=== PATIENT | female | born 1995 | race Caucasian/White ===

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

== ENCOUNTER 2020-11-26 22:56 | Inpatient (IN) ==
[2020-11-26] MEDS ORDERED: OXYTOCIN 30 UNITS/500 ML BAG IV PRN (23:13)
[2020-11-26] MEDS ORDERED: LACTATED RINGER'S 1,000 ML IV PRN (23:13)
[2020-11-26 23:47] LABS: Hematocrit (blood only) 35.1 % (37-47); Hemoglobin 11.4 g/dL (12.0-16.0); Mean Corpuscular Hemoglobin 23.5 pg (25-34); Mean Corpuscular Hgb Conc 32.5 g/dL (32-36); Mean Corpuscular Volume 72.2 fL (80-100); Mean Platelet Volume 11.2 fL (7.4-10.4); Platelet Count 236 K/uL (130-400); RDW Coefficient of Variation 15.3 % (11.5-14.5); RDW Standard Deviation 40.7 fL (36.4-46.3); Red Blood Count 4.86 M/uL (4.2-5.4); White Blood Count 22.29 K/uL (4.8-10.8)
[2020-11-27] MEDS ORDERED: LIDOCAINE 1% LOCAL 20 ML VIAL ONE (01:15)
[2020-11-27] MEDS ORDERED: BENZOCAINE 20% AER SPR 82.5 GM CAN EXT PRN (02:10)
[2020-11-27] MEDS ORDERED: HYDROCORTISONE ACETATE 25 MG SUPP PR PRN (02:10)
[2020-11-27] MEDS ORDERED: IBUPROFEN 600 MG TAB PO PRN (02:10)
[2020-11-27] MEDS ORDERED: ACETAMINOPHEN 325 MG TAB PO PRN (02:10)
[2020-11-27] MEDS ORDERED: DIPHTHERIA/TETANUS/PERTUSSIS 0.5 ML SYR/VIAL IM ONE (02:10)
[2020-11-27] MEDS ORDERED: SUPERCREAM 0.870% 15 GM JAR EXT PRN (02:10)
[2020-11-27] MEDS ORDERED: oxyCODONE/ACETAMINOPHEN 5mg/325mg TAB PO PRN (02:10)
[2020-11-27] MEDS ORDERED: OXYTOCIN 30 UNITS/500 ML BAG IV PRN (02:10)
[2020-11-27] MEDS ORDERED: miSOPROStoL 200 MCG TAB PR ONE (02:10)
--- NOTE | 2020-11-27 08:01 | Delivery Summary ---
The patient delivered a live in left occiput anterior presentation. There was no nuchal cord. Infant was delivered and placed on mother's abdomen. Delayed cord clamp was performed. Cord blood was obtained. Placenta was spontaneously delivered. Infant was handed over to the pediatric team. Details of weight and Apgars are in the pediatric record. Inspection of the perineum shows a second-degree midline laceration, which was repaired with 2-0 and 3-0 Vicryl in layers. There was good hemostasis. Rectal exam post-repair showed good sphincter tone. No sutures are palpated in the rectum. Estimated blood loss is 450 mL. All instruments were removed from the vagina including sponges, needles, and retractors. Baby and mother are doing well in recovery. Job ID: [id number] [facility]
[2020-11-27] MEDS: DOCUSATE SODIUM 100 MG CAP PO SCH ×2 (09:11→21:27)
[2020-11-27] MEDS: PRENATAL VITAMIN 1 TAB PO SCH (09:11)
[2020-11-28 06:12] LABS: Hematocrit (blood only) 32.2 % (37-47); Hemoglobin 10.1 g/dL (12.0-16.0); Mean Corpuscular Hemoglobin 23.2 pg (25-34); Mean Corpuscular Hgb Conc 31.4 g/dL (32-36); Mean Corpuscular Volume 73.9 fL (80-100); Mean Platelet Volume 11.6 fL (7.4-10.4); Platelet Count 203 K/uL (130-400); RDW Coefficient of Variation 15.5 % (11.5-14.5); RDW Standard Deviation 41.2 fL (36.4-46.3); Red Blood Count 4.36 M/uL (4.2-5.4); White Blood Count 15.15 K/uL (4.8-10.8)
[2020-11-28] MEDS: DOCUSATE SODIUM 100 MG CAP PO SCH (08:37)
[2020-11-28] MEDS: PRENATAL VITAMIN 1 TAB PO SCH (08:37)
--- NOTE | 2020-11-28 10:08 | Obstetrical Progress Note ---
Date of Service November 28, 2020 Assessment & Plan Admission and Anticipated Discharge Date Admission Date: November 26, 2020 Subjective Patient is seen and examined. She feels well, no complaints. Desires d/c today Ambulating without dizziness Voiding without difficulty Tolerating regular diet with out N&V Bleeding is minimal No fever/ chills/ CP/ SOB/ N&V/ Leg pain Breast feeding without problems Vital Signs Temp Pulse Resp BP Pulse Ox 11/28/20 07:30 36.7 C 86 18 124/67 98 11/27/20 23:15 36.8 C 95 H 18 123/73 99 Lab Results 11/26/20 11/26/20 11/26/20 Range/Units 23:25 23:25 23:28 WBC 22.29 H (4.8-10.8) K/uL RBC 4.86 (4.2-5.4) M/uL Hgb 11.4 L (12.0-16.0) g/dL Hct 35.1 L (37-47) % MCV 72.2 L (80-100) fL MCH 23.5 L (25-34) pg MCHC 32.5 (32-36) g/dL RDW Std Deviation 40.7 (36.4-46.3) fL RDW Coeff of Harish 15.3 H (11.5-14.5) % Plt Count 236 (130-400) K/uL MPV 11.2 H (7.4-10.4) fL COVID-19 Eval [facility] SARS-CoV-2, RNA, NAAT NEGATIVE (NEGATIVE) 11/28/20 Range/Units 05:49 WBC 15.15 H (4.8-10.8) K/uL RBC 4.36 (4.2-5.4) M/uL Hgb 10.1 L (12.0-16.0) g/dL Hct 32.2 L (37-47) % MCV 73.9 L (80-100) fL MCH 23.2 L (25-34) pg MCHC 31.4 L (32-36) g/dL RDW Std Deviation 41.2 (36.4-46.3) fL RDW Coeff of Harish 15.5 H (11.5-14.5) % Plt Count 203 (130-400) K/uL MPV 11.6 H (7.4-10.4) fL COVID-19 Eval Order SARS-CoV-2, RNA, NAAT (NEGATIVE) PE: General: Alert, orientedx3, NAD Abd: soft, NT, fundus firm, below Umbilicus Perineum intact, Lochia rubra minimal Ext; NT, no edema AP: 25 yo s/p , ppd# 1 VSS Afebrile doing well Desires d/c today Continue routine care All questions were answered Discussed when to call D/C home , f/u in office Results & Data ([facility]) Vital Signs (Past 12 Hours) Vital Signs Temp Pulse Resp BP Pulse Ox 11/28/20 07:30 36.7 C 86 18 124/67 98 11/27/20 23:15 36.8 C 95 H 18 123/73 99
[2020-11-28] MEDS ORDERED: bisacodyL 5 MG TABEC PO SCH (20:00)
[2020-11-29] MEDS ORDERED: bisacodyL 10 MG SUPP PR PRN (02:38)
== END 2020-11-28 11:55 | disposition home or self-care (01) | DRG 807 ==
LOC: OPB 22:56 → 4S1 22:59 → 4S2 11-27 04:15

== ENCOUNTER 2022-05-08 03:51 | Inpatient (IN) ==
[2022-05-08] MEDS ORDERED: LIDOCAINE 1% LOCAL 20 ML VIAL INFIL PRN (04:36)
[2022-05-08] MEDS ORDERED: OXYTOCIN 30 UNITS/500 ML BAG IV PRN ×2 (04:36→08:18)
[2022-05-08] MEDS ORDERED: LACTATED RINGER'S 1,000 ML IV PRN (04:36)
--- NOTE | 2022-05-08 05:04 | History & Physical Report ---
Date of Service May 08, 2022 Assessment & Plan (1) Post-dates : Admission and Anticipated Discharge Date Admission Date: May 08, 2022 History of Present Illness Chief Complaint: onset of labor at term Primary Care Provider: Kyler Venegas 27 F P1011 at 41 weeks admitted in active labor. GBS is negative Allergies Allergy/AdvReac Type Severity Reaction Status Date / Time No Known Allergies Allergy Verified 06/16/21 08:04 Home Medications Medication Instructions Recorded Confirmed Type multivitamin 1 tab PO HS 06/11/21 05/08/22 History ferrous sulfate 325 mg (65 mg 325 mg PO DAILY #60 tabs 06/16/21 05/08/22 Rx iron) tablet (Iron (ferrous sulfate)) Patient History Medical History COVID-19 Hx of 04/2020--mild, no residual symptoms Encounter for anatomic survey Encounter for supervision in primigravida, antepartum First trimester Ruptured ovarian cyst Hx Spondylolysis Surgical History History of removal of cyst History of wisdom tooth extraction Family History Mother Breast cancer Other Asthma Hypertension No family history of adverse response to anesthesia Social History Smoking Status: Never smoker Second Hand Exposure: No; Hx Alcohol Use: No Hx Substance Use: No Preferred Language: Zimbabwean Communication Ability: Effective Sheeter Machine Operator Required: No Beliefs That Will Affect Care: None marital status: marital status details: Tristan (24) [phone] Current Living Situation: Spouse and Family Current Living Situation Comment: Lives with and daughter current occupational status: employed current occupation: [employer] Other Information That Helps Us Care for You: No Feels Safe at Home: Yes Safety Concerns: Feels Safe At This Time Assistive Devices: None OB History x1 DEPUTY PROSECUTING ATTORNEY History spontaneous AB x1 with D&E Review of Systems All systems reviewed & are unremarkable except as noted in HPI & below Physical Exam Constitutional: WD/WN, vitals as above Eyes: PERRL, conjunctivae normal, anicteric sclerae Respiratory: normal respiratory effort, lungs clear to auscultation Cardiovascular: Rate/Rhythm: regular rate and regular rhythm Gastrointestinal (Abdomen): Inspection/Auscultation: abdomen normal to inspection Skin: no rashes, warm and dry Neurologic: patellar DTR's 2+ bilat, sensation intact Psychiatric: A+Ox3, euthymic affect Genitourinary: Manual OB Exam: + cervical dilation 4 cm and 5 cm, + cervical effacement 90% and + station -2 OB Exam Monitor Tracing: + external FHT monitor used, + external uterine monitor used, + category I and + normal FHT variability Results & Data Vital Signs (Past 12 Hours) Vital Signs Temp Pulse Resp BP 05/08/22 04:15 36.7 C 114 H 18 136/70 05/08/22 04:07 36.7 C 114 H 18 136/70 Laboratory Results Laboratory Results - last 72 hr 05/08/22 05/08/22 04:58 Unknown WBC 11.29 H RBC 4.72 Hgb 12.1 Hct 37.5 MCV 79.4 L MCH 25.6 MCHC 32.3 RDW Std Deviation 43.3 RDW Coeff of Harish 15.1 H Plt Count 188 MPV 11.7 SARS-CoV-2, RNA, NAAT NEGATIVE Monitoring External Monitor Cat 1
[2022-05-08 05:14] LABS: Hematocrit (blood only) 37.5 % (37.0-47.0); Hemoglobin 12.1 g/dl (12.0-16.0); Mean Corpuscular Hemoglobin 25.6 pg (25.0-34.0); Mean Corpuscular Hgb Conc 32.3 g/dL (32.0-36.0); Mean Corpuscular Volume 79.4 fL (80.0-100.0); Mean Platelet Volume 11.7 fL (9.4-12.4); Platelet Count 188 K/uL (130-400); RDW Coefficient of Variation 15.1 % (11.5-14.5); RDW Standard Deviation 43.3 fL (36.4-46.3); Red Blood Count 4.72 M/uL (4.20-5.40); White Blood Count 11.29 K/ul (4.8-10.8)
[2022-05-08] MEDS ORDERED: DIPHTHERIA/TETANUS/PERTUSSIS 0.5mL SYR/VIAL (Age 7+yrs) IM ONE (08:18)
[2022-05-08] MEDS ORDERED: BENZOCAINE 20% AER SPR 82.5 GM CAN EXT PRN (08:18)
[2022-05-08] MEDS ORDERED: HYDROCORTISONE ACETATE 25 MG SUPP PR PRN (08:18)
[2022-05-08] MEDS ORDERED: ACETAMINOPHEN 325 MG TAB PO PRN (08:18)
[2022-05-08] MEDS ORDERED: bisacodyL 10 MG SUPP PR PRN (08:18)
--- NOTE | 2022-05-08 08:18 | Delivery Summary ---
Vaginal Delivery Summary Date of Service May 08, 2022 Vaginal Delivery Summary Delivery Note live male ONELIA with delayed cord clamping and Apgars 8/9 weight pending. Cord blood obtained followed by spontaneous delivery of intact placenta. Small 1cm perineal skin tear not bleeding and not repaired due to small size. EBL 100 ml. Final sponge and instrument count are correct. Mom and baby stable.
[2022-05-08] MEDS: IBUPROFEN 600 MG TAB PO PRN ×2 (11:49→19:51)
[2022-05-08] MEDS ORDERED: LIDOCAINE 2% LOCAL 20 ML VIAL ONE (12:21)
[2022-05-08] MEDS ORDERED: diphenhydrAMINE 50 MG/ML VIAL ONE (13:19)
--- NOTE | 2022-05-08 13:31 | Procedure Note ---
Procedure Note Date of Service May 08, 2022 Note I was called to the bedside that patient has delivered this morning by Dr. Hurtado, she has perineal tear and it was bleeding. Patient is a 27-year-old -0-1-2 status post spontaneous vaginal delivery this morning. Bedside pelvic exam showed a second-degree perineal laceration at the posterior fourchette, oozing some blood. The rest of the vagina and labia were intact. I recommended to take her to labor and delivery for repair of perineal laceration. And she agreed with the recommendations. She was taking to labor and delivery by nursing team and placed in dorsolithotomy position. Procedure: Patient was cleaned with Betadine diluted with sterile water and draped with sterile drapes. Patient has no known allergies. The laceration was infiltrated with 2% lidocaine. 2-0 Vicryl was used for repair. Vagina mucosa was repaired in a continuous fashion, continued with the perineal body/bulbocavernosus muscles. Then the skin was repaired with 2-0 Vicryl in a subcuticular fashion. Good integrity and hemostasis was noted. Then there was blood clots coming from cervix those were removed manually about 100 mm. Uterine cavity felt to be empty other than blood clots. Fundus was firm and EBL was 100 mL. During repair patient felt numbness on her lips and tongue and felt lightheaded. And small area in her neck and lower face was noted to have redness, hives. A set of vitals signs were taken. Patient had 100% pulse ox on room air and tachycardia between 110-130s. She was shaking and BP's were elevated. She was started on IV fluid bolus and called anesthesiologist gas operations analyst, Dr. Clifford. When he came in patient felt better, facial and neck rash decreased and her shaking lessened. BP's coming down. He recommended observation and IV Benadryl. Patient was given 25 mg of Benadry and she stable and recovering. She had been responsive to questions at all times. Coding
--- NOTE | 2022-05-08 14:21 | Communication Note ---
Date of Service: May 08, 2022 Called to help evaluate patient by Dr. Banegas after vaginal repair. Per account, 30 ml of 2% lidocaine used for local anesthesia to assist with repair, patient then developed light headedness/blurred vision, tachycardia and hypertension. Patient stated her lips and tongue became numb. Upon evaluation patient has erythematous cheeks and upper chest, airway evaluation was unremarkable and patient did not have labored breathing. Patient remained tachycardic and hypertensive, however stated she was feeling a little better. Of note patient states she has no known allergies and has had dental procedures as well as previous vaginal repair. Benadryl 25 mg IV given, although not likely a true allergic reaction, patient appears to have a large histamine response coinciding with lidocaine administration. Recommend patient avoid lidocaine/local anesthetics until evaluated by allergy/immunology to insure allergy has been ruled out.
[2022-05-08] MEDS: DOCUSATE SODIUM 100 MG CAP PO SCH (20:33)
[2022-05-08] MEDS ORDERED: MULTIVITAMIN CHEWABLE TAB PO SCH (21:00)
[2022-05-09] MEDS: IBUPROFEN 600 MG TAB PO PRN ×2 (04:26→08:33)
[2022-05-09 06:35] LABS: Hematocrit (blood only) 31.1 % (37.0-47.0); Mean Corpuscular Hemoglobin 25.6 pg (25.0-34.0); Mean Corpuscular Hgb Conc 32.2 g/dL (32.0-36.0); Mean Corpuscular Volume 79.7 fL (80.0-100.0); Mean Platelet Volume 11.7 fL (9.4-12.4); Platelet Count 175 K/uL (130-400); RDW Coefficient of Variation 15.1 % (11.5-14.5); RDW Standard Deviation 43.8 fL (36.4-46.3); White Blood Count 12.84 K/ul (4.8-10.8)
[2022-05-09] MEDS: DOCUSATE SODIUM 100 MG CAP PO SCH (07:36)
[2022-05-09] MEDS ORDERED: PRENATAL VITAMIN 1 TAB PO SCH (08:00)
[2022-05-09] MEDS ORDERED: FERROUS SULFATE 325 MG TAB PO SCH (08:00)
--- NOTE | 2022-05-09 08:40 | Obstetrical Progress Note ---
Date of Service May 09, 2022 Assessment & Plan (1) Normal course: Patient doing well, will discharge home if baby is discharged today Precautions reviewed, meds to be sent to local [facility] pharmacy Subjective Ambulation: ambulating normally Voiding: no voiding problems Passing Gas:: Yes Diet Tolerance:: regular diet Lochia:: Small Feeding Type:: breast feeding Current Pain Level(1-10): 1 Pain well controlled on Motrin, no complaints today Would like to go home if baby is discharged today Physical Exam Constitutional WD/WN, vitals as above Respiratory normal respiratory effort, lungs clear to auscultation Cardiovascular RRR, no murmur, no edema Gastrointestinal (Abdomen) normal bowel sounds, soft, nontender, no hepatosplenomegaly Results & Data Vital Signs (Past 12 Hours) Vital Signs Temp Pulse Resp BP Pulse Ox O2 Del Method 05/09/22 02:42 36.8 C 81 18 102/68 98 Room Air 05/08/22 23:31 36.9 C 89 18 114/64 97 Room Air
[2022-05-09] MEDS ORDERED: bisacodyL 5 MG TABEC PO SCH (20:00)
== END 2022-05-09 15:40 | disposition home or self-care (01) | DRG 807 ==
LOC: 4S1 03:53 → 4E2 10:39 → 4S1 13:26 → 4E2 14:40

== ENCOUNTER 2024-02-13 16:14 | Inpatient (IN) ==
--- OUTSIDE RECORDS SUMMARY | 2024-02-13 16:20 | External Medical Summary | Summary of Care ---
Author Name Unknown Organization [facility] Address [address] [place] [address] Phone [phone] Care Team Providers Care Police Crime Scene Technician Name Role Phone Kyler Venegas DO Primary Care Provider Reason for Visit * Reason Comments Outpatient Testing Encounter Details Date Type Department Care Team (Late st Contact Info) Description 01/04/2024 8:50 AM EST Laboratory Laboratory, [facility] [address] [place] [address] [facility] [address] [place] [address] Antepartum anemia complicating Allergies No known active allergiesdocumented as of this encounter (statuses as of 01/04/2024) Medications 19 29-1 MG Oral Tablet Chewable Take by mouth. Active Iron 325 (65 Fe) MG Oral Tablet Take by mouth. Active Cetirizine HCl 10 MG Oral Tablet (ZyrTEC Allergy) Take 1 Tablet by mouth in the morning. Active documented as of this encounter (statuses as of 01/04/2024) Active Problems Problem Noted Date Diagnosed Date Antepartum anemia complicating 024 Overview (12/07/2023): Hgb 11.2 at 28 wks - BID iron at 30 wks Encounter for supervision of other normal , unspecified trimester 10/27/2021 Estimated Date of Delivery Comme nts Yes 02/11/2024 Based on last me nstrual period of 05/07/2023 (Exact Date) documented as of this encounter (statuses as of 01/04/2024) Resolved Problems Problem Noted Date Diagnosed Date Resolved Date Antepartum anemia complicating 03/13/2022 07/30/2023 Short interval between pregn ancies complicating , antepartum 10/27/202107/29 Overview (10/27/2021): G1 born 11/2018 Supervision of normal first , antepartum 06/10/2020 06/10/2021 Overview (07/08/2020): NOB labs at [facility]: rubella immune, Hep B neg, RPR neg, HIV neg, Gc/Ct neg, A+ Encounter for supervision of normal first in second trimester 05/13/2020 06/10/2020 Overview (05/13/2020): Transfer from [facility] Progress Clerk Labs 04/15/20 A+ ABS Neg RPR: NR HIV neg Hep B neg Rubella immune Urine cx: >100K lactobacillus Gc/CT neg/neg H/H: 13.1/38.6 documented as of this encounter (statuses as of 01/04/2024) Immunizations Name Administration Dates Next Due Seasonal Influenza, PF, 6 M & above, IM , (FluLaval or Fluzone) 11/24/2021,10/29/2020 Seasonal Influenza, Trivalent, (IIV3), PF, (Fluz one) 11/23/2023 TDAP (age 10 and older)(Boostrix) 02/11/2022, TDAP, Age 7 and older, IM (Adacel) 11/23/2023 documented as of this encounter Social History Tobacco Use Types Packs/Day Years Used Date Smoking Tobacco: Never Smokeless Tobacco: Never Alcohol Use Standard Drinks/Week Comments No 0 (1 standard drink = 0.6 oz pur e alcohol) PHQ-2 Answer Date Recorded PHQ-2 Score 0 10/26/2018 Hunger Vital Sign Answer Date Recorded Within the past 12 months, y ou worried that your food would run out before you got the money to buy more. Never true 07/02/19 24 Within the past 12 months, t he food you bought just didn't last and you didn't have money to get more. Never true 07/02/2023 [place] Depression Scale Answer Date Recorded [place] Depression Scale Total 0 12/21/2023 The thought of harming myself has occurred to me . Never 12/21/2023 Childcare Answer Date Recorded Do you feel overwhelmed with taking care of a child, family member or friend? No 07/02/2023 Does your family need help f inding childcare? (Household - for ages 0-17 years) Not on file 07/02/2023 Clothing Answer Date Recorded Have you been unable to get clothing when it was really needed? No 07/02/2023 Is your family able to get c lothes or diapers when needed? (Household - for ages 0-17 years) Not on file 07/02/2023 Personal Safety Answer Date Recorded Do you feel unsafe or have concerns for your saf ety? No 07/02/2023 Do you have concerns for you r family's safety? (Household - for ages 0-17 years) Not on file 07/02/2023 Utilities Answer Date Recorded Do you have trouble paying y our heating, water, or electric bill? No 07/02/2023 Is your family able to pay t he heat, water, or electric bill? (Household - for ages 0-17 years) Not on file 07/02/2023 Does your family have access to good internet? (Household - for ages 0-17 years) Not on file 07/02/2023 Employment Status Answer Date Recorded Are you unemployed or without regular income? No 07/02/2023 Does the household have a re gular source of income? (Household - for ages 0-17 years) Not on file 07/02/2023 Social Connections Answer Date Recorded How often do you feel lonely or isolated from th ose around you? Never 07/02/2023 Financial Resource Strain Answer Date R ecorded Do you have any trouble payi ng for your medications, or do you think you might in the future? No 07/02/2023 Does your family have troubl e paying for medicine? (Household - for ages 0-17 years) Not on file 07/02/2023 Transportation Needs Answer Date Record ed READ ONLY Do you have troubl e getting a ride to medical visits or work? Never True 07/02/2023 Does your family have a hard time getting a ride to doctors visits? (Household - for ages 0-17 years) Not on file 07/02/2023 Has lack of transportation k ept you from medical appointments, meetings, work, or from getting things needed for daily living? Check all that apply. (Adult - for ages 18 years and over) Not on file 07/02/2023 Do you (or your family) have trouble finding or paying for a ride (transportation)? (Household - for ages 0-17 years) Not on file 07/02/2023 Housing Stability Answer Date Recorded Do you currently live in a s helter or have no steady place to sleep at night? No 07/02/2023 READ ONLY Do you think you a re at risk of becoming homeless? No 07/02/2023 Does your family worry about paying for your home or becoming homeless? (Household - for ages 0-17 years) Not on file 0 07/02/2023 Are you homeless or worried that you might be in the future? (Adult - for ages 18 years and over) Not on file Are you (or your family) rickey eless or worried that you might be in the future? (Household - for ages 0-17 years) Not on file Food Insecurity Answer Date Recorded Do you need food for this week? No 07/02/2023 Are you able to get enough f ood for your family? (Household - for ages 0-17 years) Not on file 07/02/2023 Does your family need food t his week? (Household - for ages 0-17 years) Not on file 07/02/2023 Do you always have enough fo od for your family? (Household - for ages 0-17 years) Not on file 07/02/2023 Estimated Date of Delivery Comme nts Yes 02/11/2024 Based on last me nstrual period of 05/07/2023 (Exact Date) Sex and Gender Information Value Date Recorded Sex Assigned at Not on file Legal Sex Female 8:58 AM EDT Gender Identity Not on file Sexual Orientation Not on file documented as of this encounter Plan of Treatment Upcoming Encounters Date Type Department Care Team (Late st Contact Info) Description 01/19/2024 9:45 AM EST Office Visit Gynecology/Obstetrics [facility] [address] [place] [id number] Mary Kay Gonzalez CRNP [address] [place] [id number] Pending Results Name Type Priority Associated Diagnoses Date /Time CBC Lab Routine Antepartum anemia complicating 01/04/2024 8:37 AM EST Health Maintenance Due Date Last Done Comments HPV (Gardasil) Vaccine (1 - 3-dose series) 2012 Hepatitis B Vaccine (1 of 3 - 19+ 3-dose series) 2016 Depression Screening 11/09/2019 11/08/2018 COVID-19 Vaccine (1 - 2023-2 5 season) 2023 Pap Smear 09/29/2024 09/29/2021, 11/08/2018 DTap/Tdap Vaccines (4 - Td o r Tdap) 11/22/2033 11/23/2023, 02/11/2022, 09/03/2020 Gonorrhea / Chlamydia Screen Discontinued , 09/29/2021, 07/14/2017 Influenza Vaccine (FLU shot) Completed 09/2023, 11/24/2021, 10/29/2020 MENINGOCOCCAL (MENACTRA/MENVEO) Aged Out No longer eligible based on patient's age to complete this topic Pneumococcal Vaccine: Pediatrics (0 to 5 Years) and At-Risk Patients (6 to 64 Years) Aged Out No longer eligible based on patient's age to complete this topic documented as of this encounter Medical Devices Not on filedocumented as of this encounter Visit Diagnoses Diagnosis Antepartum anemia complicating Anemia, antepartum documented in this encounter Care Teams Police Crime Scene Technician Relationship Specialty Start Date End Date Kyler Venegas DO [address] [place] [address] PCP - General Family Medicine 06/17/21 documented as of this encounter
--- OUTSIDE RECORDS SUMMARY | 2024-02-13 16:20 | External Medical Summary ---
Author Name Unknown Address Unknown Organization [id number]:[facility] [place] - [facility] [address] [place] [address] Laboratory Report Ordering Provider Test Date Status KESHAV LAZO 01/28/2024 09:28:30 Final Observation Date Value Abnormality Reference (Units ) Status Streptococcus agalactiae DNA [Presence] in Specimen by [place] with probe detection 01/28/2024 09:28:30 Negative Negative Final No Group B Streptococcus det ected by culture-enhanced PCR (amplified probe). GBS GBSCT - [facility] 01/28/2024 09:28:30 0.0 Final GBS SPCCT - [facility] 01/28/2024 09:28:30 31.9 Final Performing Location [facility] [place] - [address] [place] [address]
--- OUTSIDE RECORDS SUMMARY | 2024-02-13 16:20 | External Medical Summary | Summary of Care ---
Author Name Unknown Organization [facility] Address [address] [facility] [place] [address] Phone [phone] Care Team Providers Care Clerical And Administrative Workers Name Role Phone Kyler Venegas DO Primary Care Provider Reason for Visit * Reason Comments Return Visit Encounter Details Date Type Department Care Team (Late st Contact Info) Description 12/07/2023 8:45 AM EDT Office Visit Gynecology/Obstetric s [facility] [address] [place] [address] Teresa Burton CRNP [address] [facility] [place] [address] Encounter for supervision of other normal , unspecified trimester*; Antepartum anemia complicating Allergies No known active allergiesdocumented as of this encounter (statuses as of 12/07/2023) Medications Medication Sig Dispensed Refills Start Date End Date Status 19 29-1 MG Oral Tablet Chewable Take by mouth. Active Iron 325 (65 Fe) MG Oral Tablet Take by mouth. Active Cetirizine HCl 10 MG Oral Tablet (ZyrTEC Allergy) Take 1 Tablet by mouth in the morning. Active documented as of this encounter (statuses as of 12/07/2023) Active Problems Problem Noted Date Diagnosed Date Antepartum anemia complicating 024 Overview: Hgb 11.2 at 28 wks - BID iron at 30 wks Encounter for supervision of other normal , unspecified trimester 10/27/2021 Estimated Date of Delivery Comme nts Yes 02/11/2024 Based on last me nstrual period of 05/07/2023 (Exact Date) documented as of this encounter (statuses as of 12/07/2023) Resolved Problems Problem Noted Date Diagnosed Date Resolved Date Antepartum anemia complicating 03/13/2022 07/30/2023 Short interval between pregn ancies complicating , antepartum 10/27/202107/29 Overview: G1 born 11/2018 Supervision of normal first , antepartum 06/10/2020 06/10/2021 Overview: NOB labs at [facility]: rubella immune, Hep B neg, RPR neg, HIV neg, Gc/Ct neg, A+ Encounter for supervision of normal first in second trimester 05/13/2020 06/10/2020 Overview: Transfer from [facility] [employer] Operator Labs 04/15/20 A+ ABS Neg RPR: NR HIV neg Hep B neg Rubella immune Urine cx: >100K lactobacillus Gc/CT neg/neg H/H: 13.1/38.6 documented as of this encounter (statuses as of 12/07/2023) Immunizations Name Administration Dates Next Due Seasonal [...] the money to buy more. Never true 05/17/20 24 Within the past 12 months, t he food you bought just didn't last and you didn't have money to get more. Never true 07/02/2023 [place] Depression Scale Answer Date Recorded [place] Depression Scale Total 3 07/02/2023 The thought of harming myself has occurred to me . Never 07/02/2023 Childcare Answer Date Recorded Do you feel [...] Recorded Sex Assigned at Not on file Gender Identity Not on file Sexual Orientation Not on file Job Start Date Occupation Industry Not on file Not on file Not on file documented as of this encounter Last Filed Vital Signs Vital Sign Reading Time Taken Comments Blood Pressure 112/60 12/07/2023 8:38 AM EDT Pulse - - Temperature - - Respiratory Rate - - Oxygen Saturation - - Inhaled Oxygen Concentration - - Weight 73.5 kg (162 lb) 12/07/2023 8:38 AM EDT Height 160 cm (5' 3") 12/07/2023 8:38 AM EDT Body Mass Index 28.7 12/07/2023 8:38 AM EDT documented in this encounter Progress Notes * Teresa Burton CRNP - 12/07/2023 8:49 AM EDT 30w4d Feels well; some irregular BH ctx, admits to not drinking enough water. No concerning symptoms. Baby is moving well. Discussed normal GTT; hgb 11.2. Already taking iron once a day, advised to increase to BID. Will recheck CBC at 34 weeks. CHAVO Mejia documented in this encounter Nursing Notes * Radha Weiss LPN - 12/07/2023 8:41 AM EDT 30w4d Denies concerns documented in this encounter Plan of Treatment Upcoming Encounters Date Type Department Care Team (Late st Contact Info) Description 12/21/2023 8:15 AM EST [facility] [address] [place] [address] Mary Kay Gonzalez CRNP [address] [place] [address] Health Maintenance Due Date Last Done Comments HPV (Gardasil) Vaccine (1 - 3-dose series) 2012 Hepatitis B Vaccine (1 of 3 - 19+ 3-dose series) 2016 Depression Screening 11/09/2019 11/08/2018 COVID-19 Vaccine ( - 2023-2 5 season) 2023 Pap Smear [...] as of this encounter Visit Diagnoses Diagnosis Encounter for supervision of other normal , unspecified trimester- Primary Antepartum anemia complicating Anemia, antepartum documented in this encounter Care Teams Clerical And Administrative Workers Relationship Specialty Start Date End Date Kyler Venegas DO [address] [place] [address] PCP - General Family Medicine 06/17/21 documented as of this encounter
--- OUTSIDE RECORDS SUMMARY | 2024-02-13 16:20 | External Medical Summary | Summary of Care ---
Author Name Unknown Organization [facility] Address [address] [facility] [address] Phone [phone] Care Team Providers Care Manufacturing Intern Name Role Phone Kyler Venegas DO Primary Care Provider Reason for Visit * Reason Comments Return Visit Encounter Details Date Type Department Care Team (Late st Contact Info) Description 02/11/2024 9:30 AM EST Office Visit Gynecology/Obstetri [facility] [address] [place] [address] Toan Minaya MD [address] [place] [phone] Nurse Loi [facility] Beginnings Return Vinod [address] [place] [address] Encounter for supervision of other normal , unspecified trimester*; Antepartum anemia complicating Allergies No known active allergiesdocumented as of this encounter (statuses as of 02/11/2024) Medications 19 29-1 MG Oral Tablet Chewable Take by mouth. Active Iron 325 (65 Fe) MG Oral Tablet Take by mouth. Active Cetirizine HCl 10 MG Oral Tablet (ZyrTEC Allergy) Take 1 Tablet by mouth in the morning. Active documented as of this encounter (statuses as of 02/11/2024) Active Problems Problem Noted Date Diagnosed Date Antepartum anemia complicating 024 Overview (12/07/2023): Hgb 11.2 at 28 wks - BID iron at 30 wks Encounter for supervision of other normal , unspecified trimester 10/27/2021 Estimated Date of Delivery Comme nts Yes 02/11/2024 Based on last me nstrual period of 05/07/2023 (Exact Date) documented as of this encounter (statuses as of 02/11/2024) Resolved Problems Problem Noted Date Diagnosed Date Resolved Date Antepartum anemia complicating 03/13/2022 07/30/2023 Short interval between pregn ancies complicating , antepartum 10/27/202107/29 Overview (10/27/2021): G1 born 11[birth year]2020 Supervision of normal first , antepartum 06/10/2020 06/10/2021 Overview (07/08/2020): NOB labs at [facility]: rubella immune, Hep B neg, RPR neg, HIV neg, Gc/Ct neg, A+ Encounter for supervision of normal first in second trimester 05/13/2020 06/10/2020 Overview (05/13/2020): Transfer from [facility] Public [employer] Eligibility Assistant Labs 04/15/20 A+ ABS Neg RPR: NR HIV neg Hep B neg Rubella immune Urine cx: >100K lactobacillus Gc/CT neg/neg H/H: 13.1/38.6 documented as of this encounter (statuses as of 02/11/2024) Immunizations Name Administration Dates Next Due Seasonal [...] money to get more. Never true 07/02/2023 [place] Depression Scale Answer Date Recorded [place] Depression Scale Total 0 12/21/2023 The thought [...] Sign Reading Time Taken Comments Blood Pressure 116/72 02/11/2024 9:45 AM EST Pulse - - Temperature - - Respiratory Rate - - Oxygen Saturation - - Inhaled Oxygen Concentration - - Weight 78.9 kg (174 lb) 02/11/2024 9:45 AM EST Height - - Body Mass Index 30.82 02/04/2024 10:03 AM EST documented in this encounter Progress Notes * Toan Minaya MD - 02/11/2024 9:53 AM EST Patient is doing well no significant complaints good movement no bleeding no contractions at this point. We will return on February 20 for induction if she does not deliver before then. documented in this encounter Nursing Notes * Tessa Rod LPN - 02/11/2024 9:45 AM EST 40w0d Denies vaginal bleeding/rom + movement No new concerns Declines cervical check today documented in this encounter Plan of Treatment Upcoming Encounters Date Type Department Care Team (Late st Contact Info) Description 02/18/2024 9:30 AM EST Office Visit Gynecology/Obstetrics [facility] [address] [place] [address] Kiana Farias PA-C [address] [place] [address] Loi Non Stress Tests Vinod [address] [place] [address] Health Maintenance Due Date Last Done Comments [...] 5 Years) and At-Risk Patients (6 to 18 Years and 19+ Years) Aged Out No longer eligible based on patient's age to complete this topic documented as of this encounter Medical Devices Not on filedocumented as of this encounter Visit Diagnoses Diagnosis Encounter for supervision of other normal , unspecified trimester- Primary Antepartum anemia complicating Anemia, antepartum documented in this encounter Care Teams Manufacturing Intern Relationship Specialty Start Date End Date Kyler Venegas DO [address] [place] [address] PCP - General Family Medicine 06/17/21 documented as of this encounter
--- OUTSIDE RECORDS SUMMARY | 2024-02-13 16:20 | External Medical Summary | Summary of Care ---
Author Name Unknown Organization [facility] Address [address] [place] [address] Phone [phone] Care Team Providers Care Double End Chucking Machine Operator Name Role Phone Kyler Venegas DO Primary Care Provider Reason for Visit * Reason Comments Return Visit Encounter Details Date Type Department Care Team (Late st Contact Info) Description 01/20/2024 3:00 PM EST Office Visit Gynecology/Obstetric s [facility] [address] [place] [address] Evelio Jacobo MD [address] [place] [address] Encounter for supervision of other normal , unspecified trimester*; Antepartum anemia complicating Allergies No known active allergiesdocumented as of this encounter (statuses as of 01/20/2024) Medications 19 29-1 MG Oral Tablet Chewable Take by mouth. Active Iron 325 (65 Fe) MG Oral Tablet Take by mouth. Active Cetirizine HCl 10 MG Oral Tablet (ZyrTEC Allergy) Take 1 Tablet by mouth in the morning. Active documented as of this encounter (statuses as of 01/20/2024) Active Problems Problem Noted Date Diagnosed Date Antepartum anemia complicating 024 Overview (12/07/2023): Hgb 11.2 at 28 wks - BID iron at 30 wks Encounter for supervision of other normal , unspecified trimester 10/27/2021 Estimated Date of Delivery Comme nts Yes 02/11/2024 Based on last me nstrual period of 05/07/2023 (Exact Date) documented as of this encounter (statuses as of 01/20/2024) Resolved Problems Problem Noted Date Diagnosed Date Resolved Date Antepartum anemia complicating 03/13/2022 07/30/2023 Short interval between pregn ancies complicating , antepartum 10/27/202107/29 Overview (10/27/2021): G1 born 11/2018 Supervision of normal first , antepartum 06/10/2020 06/10/2021 Overview (07/08/2020): NOB labs at [facility]: rubella immune, Hep B neg, RPR neg, HIV neg, Gc/Ct neg, A+ Encounter for supervision of normal first in second trimester 05/13/2020 06/10/2020 Overview (05/13/2020): Transfer from [facility] [employer] Labs 04/15/20 A+ ABS Neg RPR: NR HIV neg Hep B neg Rubella immune Urine cx: >100K lactobacillus Gc/CT neg/neg H/H: 13.1/38.6 documented as of this encounter (statuses as of 01/20/2024) Immunizations Name Administration Dates Next Due Seasonal [...] money to get more. Never true 07/02/2023 [place] Depression Scale Answer Date Recorded [place] Depression Scale Total 0 12/21/2023 The thought [...] Sign Reading Time Taken Comments Blood Pressure 100/60 01/20/2024 2:59 PM EST Pulse - - Temperature - - Respiratory Rate - - Oxygen Saturation - - Inhaled Oxygen Concentration - - Weight 76.2 kg (168 lb) 01/20/2024 2:59 PM EST Height 160 cm (5' 3") 01/20/2024 2:59 PM EST Body Mass Index 29.76 01/20/2024 2:59 PM EST documented in this encounter Progress Notes * Evelio Jacobo MD - 01/20/2024 3:17 PM EST Pt doing well No complaints RC 1 week Pt declined GBS culx today. She tells me her spouse is in the car and she has no time Will do GBs next week documented in this encounter Nursing Notes * Nancy Judd LPN - 01/20/2024 3:02 PM EST 36w3d Pt declines GBS today says she doesn't have time documented in this encounter Plan of Treatment Health Maintenance Due Date Last Done Comments [...] antepartum documented in this encounter Care Teams Double End Chucking Machine Operator Relationship Specialty Start Date End Date Kyler Venegas DO [address] [place] [address] PCP - General Family Medicine 06/17/21 documented as of this encounter
--- OUTSIDE RECORDS SUMMARY | 2024-02-13 16:20 | External Medical Summary ---
Author Name Unknown Address Unknown Organization [facility] [place] [id number] Laboratory Report Ordering Provider Test Date Status KESHAV LAZO 01/04/2024 08:37:57 Final Observation Date Value Abnormality Reference (Units ) Status WBC, Total 01/04/2024 08:37:57 8.59 4.00-10.8 0 (K/uL) Final RBC 01/04/2024 08:37:57 4.24 3.85-5.15 (M/uL) Final Hemoglobin 01/04/2024 08:37:57 11.2 Below low normal 12 .0-15.3 (g/dL) Final HCT 01/04/2024 08:37:57 34.9 Below low normal 36. 0-45.2 (%) Final MCV 01/04/2024 08:37:57 82.3 81.5-97.5 (fL) Final MCH 01/04/2024 08:37:57 26.4 27.0-34.0 (pg) Final MCHC 01/04/2024 08:37:57 32.1 32.0-36.0 (g/dL) Final RDW 01/04/2024 08:37:57 14.9 11.5-15.5 (%) Final Platelets 01/04/2024 08:37:57 170 140-400 (K /uL) Final MPV 01/04/2024 08:37:57 12.0 6.6-11.1 ( fL) Final Performing Location [facility] [place] [address]
--- OUTSIDE RECORDS SUMMARY | 2024-02-13 16:20 | External Medical Summary | Summary of Care ---
Author Name Unknown Organization [facility] Address [address] [facility] [place] [address] Phone [phone] Care Team Providers Care Secondary School Teacher Name Role Phone Kyler Venegas DO Primary Care Provider Reason for Visit * Reason Comments Return Visit Encounter Details Date Type Department Care Team (Late st Contact Info) Description 12/21/2023 8:15 AM EST Office Visit [facility]ne[facility]st[facility] s [facility] [address] [place] [address] Mary Kay Gonzalez CRNP [address] [place] [address] Encounter for supervision of other normal , unspecified trimester*; Antepartum anemia complicating Allergies No known active allergiesdocumented as of this encounter (statuses as of 12/21/2023) Medications Medication Sig Dispensed Refills Start Date End Date Status 19 29-1 MG Oral Tablet Chewable Take by mouth. Active Iron 325 (65 Fe) MG Oral Tablet Take by mouth. Active Cetirizine HCl 10 MG Oral Tablet (ZyrTEC Allergy) Take 1 Tablet by mouth in the morning. Active documented as of this encounter (statuses as of 12/21/2023) Active Problems Problem Noted Date Diagnosed Date Antepartum anemia complicating 024 Overview: Hgb 11.2 at 28 wks - BID iron at 30 wks Encounter for supervision of other normal , unspecified trimester 10/27/2021 Estimated Date of Delivery Comme nts Yes 02/11/2024 Based on last me nstrual period of 05/07/2023 (Exact Date) documented as of this encounter (statuses as of 12/21/2023) Resolved Problems Problem Noted Date Diagnosed Date Resolved Date Antepartum anemia complicating 03/13/2022 07/30/2023 Short interval between pregn ancies complicating , antepartum 10/27/202107/29 Overview: G1 born 11/2020 Supervision of normal first , antepartum 06/10/2020 06/10/2021 Overview: NOB labs at [facility]: rubella immune, Hep B neg, RPR neg, HIV neg, Gc/Ct neg, A+ Encounter for supervision of normal first in second trimester 05/13/2020 06/10/2020 Overview: Transfer from [facility] Lead Technologist In [employer] Labs 04/15/20 A+ ABS Neg RPR: NR HIV neg Hep B neg Rubella immune Urine cx: >100K lactobacillus Gc/CT neg/neg H/H: 13.1/38.6 documented as of this encounter (statuses as of 12/21/2023) Immunizations Name Administration Dates Next Due Seasonal [...] money to get more. Never true 07/02/2023 [place] Depression Scale Answer Date Recorded [place] Depression Scale Total 3 07/02/2023 The thought [...] Sign Reading Time Taken Comments Blood Pressure 108/58 12/21/2023 8:16 AM EST Pulse - - Temperature - - Respiratory Rate - - Oxygen Saturation - - Inhaled Oxygen Concentration - - Weight 75.3 kg (166 lb) 12/21/2023 8:16 AM EST Height - - Body Mass Index 29.41 12/07/2023 8:38 AM EDT documented in this encounter Progress Notes * Mary Kay Gonzalez CRNP - 12/21/2023 8:28 AM EST 32w4d Struggling to take iron BID- getting cramping and diarrhea. Advised to take once a day and add in iron-rich foods. No other concerns. Baby is active. Denies contractions, bleeding, LOF. Discussed contraception, likely desires OCP . May consider RSV vaccine at next visit. CHAVO Wright * Ailyn Sims CMA - 12/21/2023 8:16 AM EST 32w4d Trouble taking x2 of iron. Causing cramps/diarrhea. Okay with taking 1 pill. documented in this encounter Plan of Treatment Upcoming Encounters Date Type Department Care Team (Late st Contact Info) Description 01/04/2024 8:15 AM EST Office Visit Gynecology/Obstetrics [facility] [address] [place] [address] Mary Kay Gonzalez CRNP [address] [place] [address] Health Maintenance Due Date Last Done Comments [...] antepartum documented in this encounter Care Teams Secondary School Teacher Relationship Specialty Start Date End Date Kyler Venegas DO [address] [place] [address] PCP - General Family Medicine 06/17/21 documented as of this encounter
--- OUTSIDE RECORDS SUMMARY | 2024-02-13 16:20 | External Medical Summary | Summary of Care ---
Author Name Unknown Organization [facility] Address [address] [facility] [address] Phone [phone] Care Team Providers Care Outsole Cementer Name Role Phone Kyler Venegas DO Primary Care Provider Reason for Visit * Reason Comments Return Visit Encounter Details Date Type Department Care Team (Late st Contact Info) Description 02/11/2024 9:30 AM EST Office Visit Gynecology/Obstetri [facility] [address] [place] [address] Toan Minaya MD [address] [place] [phone] Nurse Loi [facility] Beginnings Return Vinod [address] [place] [address] Encounter for supervision of other normal , [...] 06/10/2020 06/10/2021 Overview (07/08/2020): NOB labs at [facility]: rubella immune, Hep B neg, RPR neg, HIV neg, Gc/Ct neg, A+ Encounter for supervision of normal first in second trimester 05/13/2020 06/10/2020 Overview (05/13/2020): Transfer from [facility] [employer] Labs 04/15/20 A+ ABS Neg RPR: NR [...] money to get more. Never true 07/02/2023 [place] Depression Scale Answer Date Recorded [place] Depression Scale Total 0 12/21/2023 The thought [...] Gynecology/Obstetrics [facility] [address] [place] [address] Kiana Farias PA-C [address] [place] [address] Loi Non Stress Tests Vinod [address] [place] [address] Health Maintenance Due Date Last Done Comments [...] antepartum documented in this encounter Care Teams Outsole Cementer Relationship Specialty Start Date End Date Kyler Venegas DO [address] [place] [address] PCP - General Family Medicine 06/17/21 documented as of this encounter
--- OUTSIDE RECORDS SUMMARY | 2024-02-13 16:20 | External Medical Summary | Summary of Care ---
Author Name Unknown Organization [facility] Address [address] [facility] [place] [address] Phone [phone] Care Team Providers Care Title I Instructional Assistant Name Role Phone Kyler Venegas DO Primary Care Provider Reason for Visit * Reason Comments Return Visit Encounter Details Date Type Department Care Team (Late st Contact Info) Description 02/04/2024 10:15 AM EST Office Visit Gynecology/Obstetri l[facility] [address] [place] [address] Melba Holliday PA-C [address] [place] [address] Nurse Loi Healthy Beginnings Return Vinod [address] [place] [address] Encounter for supervision of other normal , unspecified trimester*; Antepartum anemia complicating Allergies No known active allergiesdocumented as of this encounter (statuses as of 02/04/2024) Medications 19 29-1 MG Oral Tablet Chewable Take by mouth. Active Iron 325 (65 Fe) MG Oral Tablet Take by mouth. Active Cetirizine HCl 10 MG Oral Tablet (ZyrTEC Allergy) Take 1 Tablet by mouth in the morning. Active documented as of this encounter (statuses as of 02/04/2024) Active Problems Problem Noted Date Diagnosed Date Antepartum anemia complicating 10/22/2 024 Overview (12/07/2023): Hgb 11.2 at 28 wks - BID iron at 30 wks Encounter for supervision of other normal , unspecified trimester 10/27/2021 Estimated Date of Delivery Comme nts Yes 02/11/2024 Based on last me nstrual period of 05/07/2023 (Exact Date) documented as of this encounter (statuses as of 02/04/2024) Resolved Problems Problem Noted Date Diagnosed Date Resolved Date Antepartum anemia complicating 03/13/2022 07/30/2023 Short interval between pregn ancies complicating , antepartum 10/27/202107/29 Overview (10/27/2021): G1 born 11/2018 Supervision of normal first , antepartum 06/10/2020 06/10/2021 Overview (07/08/2020): NOB labs at [facility]: rubella immune, Hep B neg, RPR neg, HIV neg, Gc/Ct neg, A+ Encounter for supervision of normal first in second trimester 05/13/2020 06/10/2020 Overview (05/13/2020): Transfer from [facility] Preschool Head Teacher Labs 04/15/20 A+ ABS Neg RPR: NR HIV neg Hep B neg Rubella immune Urine cx: >100K lactobacillus Gc/CT neg/neg H/H: 13.1/38.6 documented as of this encounter (statuses as of 02/04/2024) Immunizations Name Administration Dates Next Due Seasonal [...] money to get more. Never true 07/02/2023 [place] Depression Scale Answer Date Recorded [place] Depression Scale Total 0 12/21/2023 The thought [...] Sign Reading Time Taken Comments Blood Pressure 114/70 02/04/2024 10:03 AM EST Pulse - - Temperature - - Respiratory Rate - - Oxygen Saturation - - Inhaled Oxygen Concentration - - Weight 78.9 kg (174 lb) 02/04/2024 10:03 AM EST Height 160 cm (5' 3") 02/04/2024 10:03 AM EST Body Mass Index 30.82 02/04/2024 10:03 AM EST documented in this encounter Progress Notes * Melba Holliday PA-C - 02/04/2024 10:37 AM EST 39w0d No concerns. No regular contractions. Denies LOF, VB. Baby is active. Uncertain lie -- ultrasound in follow up baby cephalic. Reviewed postdate IOL, prefer to wait until 41 weeks to allow time for natural labor. Scheduled 02/21/2024 based on availability and patient requested timing. Discussed plan for JODEE/NST/VINNIE check on 02/18/2024 for postdates if she does not go into labor by that time. Labor precautions RTC in 1 week Melba Holliday PA-C documented in this encounter Nursing Notes * Radha Weiss LPN - 02/04/2024 10:05 AM EST 39w0d Denies concerns documented in this encounter Plan of Treatment Upcoming Encounters Date Type Department Care Team (Late st Contact Info) Description 02/11/2024 9:30 AM EST Office Visit Gynecology/Obstetrics [address] [place] [address] Toan Minaya MD [address] [place] [phone] Nurse Loi Healthy Beginnings Return Vinod [address] [place] [address] Pending Results Name Type Priority Associated Diagnoses Date /Time US PREG LIMITED 1 OR MORE FETUSES Medical Imaging Routine Encounter for supervision of other normal , unspecified trimester 02/04/2024 10:38 AM EST Scheduled Orders Name Type Priority Associated Diagnoses Orde r Schedule US PREG LIMITED 1 OR MORE FETUSES Medical Imaging Routine Encounter for supervision of other normal , unspecified trimester Expected: 02/04/2024, Expires: 03/06/2025 Health Maintenance Due Date Last Done Comments [...] antepartum documented in this encounter Care Teams Title I Instructional Assistant Relationship Specialty Start Date End Date Kyler Venegas DO [address] [place] [facility] [place] [address] PCP - General Family Medicine 06/17/21 documented as of this encounter
--- OUTSIDE RECORDS SUMMARY | 2024-02-13 16:20 | External Medical Summary | Summary of Care ---
Author Name Unknown Organization [facility] Address [address] [facility] [place] [address] Phone [phone] Care Team Providers Care Blown Film Extrusion Operator Name Role Phone Kyler Venegas DO Primary Care Provider Reason for Visit * Reason Comments Return Visit Encounter Details Date Type Department Care Team (Late st Contact Info) Description 01/04/2024 8:15 AM EST Office Visit [facility] [address] [place] [address] Mary Kay Gonzalez CRNP [address] [place] [address] Encounter for supervision of other normal , [...] 06/10/2020 06/10/2021 Overview (07/08/2020): NOB labs at [facility]: rubella immune, Hep B neg, RPR neg, HIV neg, Gc/Ct neg, A+ Encounter for supervision of normal first in second trimester 05/13/2020 06/10/2020 Overview (05/13/2020): Transfer from [facility] 04/15/20 A+ ABS Neg RPR: NR [...] money to get more. Never true 07/02/2023 [place] Depression Scale Answer Date Recorded [place] Depression Scale Total 0 12/21/2023 The thought [...] Sign Reading Time Taken Comments Blood Pressure 102/54 01/04/2024 8:10 AM EST Pulse - - Temperature - - Respiratory Rate - - Oxygen Saturation - - Inhaled Oxygen Concentration - - Weight 76.4 kg (168 lb 6.4 oz) 01/04/2024 8:10 A M EST Height - - Body Mass Index 29.83 12/07/2023 8:38 AM EDT documented in this encounter Progress Notes * Mary Kay Gonzalez CRNP - 01/04/2024 8:17 AM EST 34w4d No concerns. Taking iron once a day as discussed at last visit. Repeat CBC today. Baby is active. She denies contractions, bleeding, LOF. Declines RSV vaccine. CHAVO Wright * Ailyn Sims CMA - 01/04/2024 8:10 AM EST 34w4d Denies any concerns documented in this encounter Plan of Treatment Upcoming Encounters Date Type Department Care Team (Late st Contact Info) Description 01/04/2024 8:50 AM EST [facility] [address] [place] [phone] Mukund Monsivais [address] [place] [address] Antepartum anemia complicating 01/19/2024 9:45 AM EST Office Visit Gynecology/Obstetric s [facility] [address] [place] [address] Mary Kay Gonzalez CRNP [address] [place] [address] Pending Results Name Type Priority Associated Diagnoses Date /Time CBC Lab Routine Antepartum anemia complicating 01/04/2024 8:37 AM EST Scheduled Orders Name Type Priority Associated Diagnoses Orde r Schedule CBC Lab Routine Antepartum anemia complicating Expected: 01/04/2024 (Approximate), Expires: 01/03/2025 Health Maintenance Due Date Last Done Comments [...] trimester- Primary Antepartum anemia complicating Anemia, antepartum Antepartum anemia complicating Anemia, antepartum documented in this encounter Care Teams Blown Film Extrusion Operator Relationship Specialty Start Date End Date Kyler Venegas DO [address] [place] [address] PCP - General Family Medicine 06/17/21 documented as of this encounter
--- OUTSIDE RECORDS SUMMARY | 2024-02-13 16:20 | External Medical Summary | Summary of Care ---
Author Name Unknown Organization [facility] Address [address] [facility] [place] [address] Phone [phone] Care Team Providers Care Insurance Coordinator Name Role Phone Kyler Venegas DO Primary Care Provider Reason for Visit * Reason Comments Return Visit Encounter Details Date Type Department Care Team (Late st Contact Info) Description 12/07/2023 8:45 AM EDT Office Visit Gynecology/Obstetric s [facility] [address] [place] [address] Teresa Burton CRNP [address] [place] [address] Encounter for supervision of other normal , [...] antepartum 06/10/2020 06/10/2021 Overview: NOB labs at [facility]: rubella immune, Hep B neg, RPR neg, HIV neg, Gc/Ct neg, A+ Encounter for supervision of normal first in second trimester 05/13/2020 06/10/2020 Overview: Transfer from [facility] 04/15/20 A+ ABS Neg RPR: [...] money to get more. Never true 07/02/2023 [place] Depression Scale Answer Date Recorded [place] Depression Scale Total 3 07/02/2023 The thought [...] 12/21/2023 8:15 AM EST [facility] [address] [place] [address] Mary Kay Gonzalez CRNP [address] [place] [address] Health Maintenance Due Date Last Done Comments [...] antepartum documented in this encounter Care Teams Insurance Coordinator Relationship Specialty Start Date End Date Kyler Venegas DO [address] [place] [place] [address] PCP - General Family Medicine 06/17/21 documented as of this encounter
--- OUTSIDE RECORDS SUMMARY | 2024-02-13 16:20 | External Medical Summary | Summary of Care ---
Author Name Unknown Organization [facility] Address [address] [place] [address] Phone [phone] Care Team Providers Care Pearl Stringer Name Role Phone Kyler Venegas DO Primary Care Provider Reason for Visit * Reason Onset Date Comments Appointment 01/20/2024 Encounter Details Date Type Department Care Team (Late st Contact Info) Description 01/20/2024 Telephone Gynecology/Obstetrics [facility] [address] [facility] [place] [address] Kyler Venegas DO [address] [place] [address] Appointment Allergies No known active allergiesdocumented as of this encounter (statuses as of 01/27/2024) Medications 19 29-1 MG Oral Tablet Chewable Take by mouth. Active Iron 325 (65 Fe) MG Oral Tablet Take by mouth. Active Cetirizine HCl 10 MG Oral Tablet (ZyrTEC Allergy) Take 1 Tablet by mouth in the morning. Active documented as of this encounter (statuses as of 01/27/2024) Active Problems Problem Noted Date Diagnosed Date Antepartum anemia complicating 024 Overview (12/07/2023): Hgb 11.2 at 28 wks - BID iron at 30 wks Encounter for supervision of other normal , unspecified trimester 10/27/2021 Estimated Date of Delivery Comme nts Yes 02/11/2024 Based on last me nstrual period of 05/07/2023 (Exact Date) documented as of this encounter (statuses as of 01/27/2024) Resolved Problems Problem Noted Date Diagnosed Date Resolved Date Antepartum anemia complicating 03/13/2022 07/30/2023 Short interval between pregn ancies complicating , antepartum 10/27/202107/29 Overview (10/27/2021): G1 born 11/2018 Supervision of normal first , antepartum 06/10/2020 06/10/2021 Overview (07/08/2020): NOB labs at [facility]: rubella immune, Hep B neg, RPR neg, HIV neg, Gc/Ct neg, A+ Encounter for supervision of normal first in second trimester 05/13/2020 06/10/2020 Overview (05/13/2020): Transfer from [facility] 04/15/20 A+ ABS Neg RPR: NR HIV neg Hep B neg Rubella immune Urine cx: >100K lactobacillus Gc/CT neg/neg H/H: 13.1/38.6 documented as of this encounter (statuses as of 01/27/2024) Immunizations Name Administration Dates Next Due Seasonal [...] money to get more. Never true 07/02/2023 [place] Depression Scale Answer Date Recorded [place] Depression Scale Total 0 12/21/2023 The thought [...] on file documented as of this encounter Miscellaneous Notes * Telephone Encounter - April Parker OSA - 01/20/2024 3:33 PM EST Pt needs a 1 week follow follow up for appointment on 01/19. Was unable to find any open spots. Please assist with scheduling. Thanks! documented in this encounter Plan of Treatment Upcoming Encounters Date Type Department Care Team (Late st Contact Info) Description 01/28/2024 9:15 AM EST Office Visit Gynecology/Obstetrics [facility] [address] [place] [address] Mary Kay Gonzalez CRNP [address] [place] [address] Nurse Loi [facility] Return Vinod [address] [place] [address] Health Maintenance Due Date Last Done Comments [...] Not on filedocumented as of this encounter Care Teams Pearl Stringer Relationship Specialty Start Date End Date Kyler Venegas DO [address] [place] [address] PCP - General Family Medicine 06/17/21 documented as of this encounter
--- OUTSIDE RECORDS SUMMARY | 2024-02-13 16:20 | External Medical Summary | Summary of Care ---
Author Name Unknown Organization [facility] Address [address] [facility] [address] Phone [phone] Care Team Providers Care Logistics Service Representative Name Role Phone Kyler Venegas DO Primary Care Provider Reason for Visit * Reason Comments Return Visit Encounter Details Date Type Department Care Team (Late st Contact Info) Description 01/28/2024 9:15 AM EST Office Visit Gynecology/Obstetri l[facility]aro [facility] [address] [facility] [place] [address] Mary Kay Gonzalez CRNP [address] [place] [address] Nurse Loi [facility] Return Vinod [address] [place] [address] Encounter for supervision of other normal , unspecified trimester*; Antepartum anemia complicating Allergies No known active allergiesdocumented as of this encounter (statuses as of 01/28/2024) Medications 19 29-1 MG Oral Tablet Chewable Take by mouth. Active Iron 325 (65 Fe) MG Oral Tablet Take by mouth. Active Cetirizine HCl 10 MG Oral Tablet (ZyrTEC Allergy) Take 1 Tablet by mouth in the morning. Active documented as of this encounter (statuses as of 01/28/2024) Active Problems Problem Noted Date Diagnosed Date Antepartum anemia complicating 10/22/2 024 Overview (12/07/2023): Hgb 11.2 at 28 wks - BID iron at 30 wks Encounter for supervision of other normal , unspecified trimester 10/27/2021 Estimated Date of Delivery Comme nts Yes 02/11/2024 Based on last me nstrual period of 05/07/2023 (Exact Date) documented as of this encounter (statuses as of 01/28/2024) Resolved Problems Problem Noted Date Diagnosed Date Resolved Date Antepartum anemia complicating 03/13/2022 07/30/2023 Short interval between pregn ancies complicating , antepartum 10/27/202107/29 Overview (10/27/2021): G1 born 11/2018 Supervision of normal first , antepartum 06/10/2020 06/10/2021 Overview (07/08/2020): NOB labs at [facility]: rubella immune, Hep B neg, RPR neg, HIV neg, Gc/Ct neg, A+ Encounter for supervision of normal first in second trimester 05/13/2020 06/10/2020 Overview (05/13/2020): Transfer from [facility] 04/15/20 A+ ABS Neg RPR: NR HIV neg Hep B neg Rubella immune Urine cx: >100K lactobacillus Gc/CT neg/neg H/H: 13.1/38.6 documented as of this encounter (statuses as of 01/28/2024) Immunizations Name Administration Dates Next Due Seasonal [...] money to get more. Never true 07/02/2023 Brant Depression Scale Answer Date Recorded Br[place] Depression Scale Total 0 12/21/2023 The thought [...] Sign Reading Time Taken Comments Blood Pressure 120/70 01/28/2024 9:12 AM EST Pulse - - Temperature - - Respiratory Rate - - Oxygen Saturation - - Inhaled Oxygen Concentration - - Weight 77.7 kg (171 lb 6.4 oz) 01/28/2024 9:12 A M EST Height - - Body Mass Index 30.36 01/20/2024 2:59 PM EST documented in this encounter Progress Notes * Mary Kay Gonzalez CRNP - 01/28/2024 9:28 AM EST 38w0d Baby moved less than usual yesterday. Did not do a kick count. Seems more active today. Stressed importance of completing kick count today, call immediately if less than 10 movements in 2 hours. No other concerns. Denies contractions, bleeding, LOF. GBS today. Extracorporeal Technician Documentation Provider requested engineering vice president. Name of engineering vice president: CHAVO Milligan * Ailyn Sims CMA - 01/28/2024 9:12 AM EST 38w0d GBS swab today. DFM within the last 48 hours. documented in this encounter Plan of Treatment Upcoming Encounters Date Type Department Care Team (Late st Contact Info) Description 02/04/2024 9:30 AM EST Office Visit Gynecology/Obstetrics [facility] [address] [place] [address] Melba Holliday PA-C [address] [place] [address] [place], Nurse [facility] Vinod [address] [place] [address] Pending Results Name Type Priority Associated Diagnoses Date /Time GROUP B STREP CULTURE/PCR Lab Routine Encounter for supervision of other normal , unspecified trimester 01/28/2024 9:28 AM EST Scheduled Orders Name Type Priority Associated Diagnoses Orde r Schedule GROUP B STREP CULTURE/PCR Lab Routine Encounter for supervision of other normal , unspecified trimester Expected: 01/28/2024, Expires: 01/27/2025 Health Maintenance Due Date Last Done Comments [...] antepartum documented in this encounter Care Teams Logistics Service Representative Relationship Specialty Start Date End Date Kyler Venegas DO [address] [place] [address] PCP - General Family Medicine 06/17/21 documented as of this encounter
--- OUTSIDE RECORDS SUMMARY | 2024-02-13 16:21 | External Medical Summary | Summary of Care ---
Author Name Unknown Organization [facility] Address [address] [facility] [address] Phone [phone] Care Team Providers Care Manager Client Support Name Role Phone Kyler Venegas DO Primary Care Provider Reason for Visit * Reason Comments Return Visit Encounter Details Date Type Department Care Team (Late st Contact Info) Description 09/27/2023 11:45 AM EDT Office Visit Gynecology/Obstetric s [facility] [address] [place] [address] Melba Holliday PA-C [address] [place] [address] Encounter for supervision of other normal , unspecified trimester* Allergies No known active allergiesdocumented as of this encounter (statuses as of 09/27/2023) Medications Medication Sig Dispensed Refills Start Date End Date Status 19 29-1 MG Oral Tablet Chewable Take by mouth. Activ e documented as of this encounter (statuses as of 09/27/2023) Active Problems Problem Noted Date Diagnosed Date Encounter for supervision of other normal , unspecified trimester 10/27/2021 Estimated Date of Delivery Comme nts Yes 02/11/2024 Based on last me nstrual period of 05/07/2023 (Exact Date) documented as of this encounter (statuses as of 09/27/2023) Resolved Problems Problem Noted Date Diagnosed Date Resolved Date Antepartum anemia complicating 03/13/2022 07/30/2023 Short interval between pregn ancies complicating , antepartum 10/27/202107/29 Overview: G1 born 11/2018 Supervision of normal first , antepartum 06/10/2020 06/10/2021 Overview: NOB labs at [facility]: rubella immune, Hep B neg, RPR neg, HIV neg, Gc/Ct neg, A+ Encounter for supervision of normal first in second trimester 05/13/2020 06/10/2020 Overview: Transfer from [facility] 04/15/20 A+ ABS Neg RPR: NR HIV neg Hep B neg Rubella immune Urine cx: >100K lactobacillus Gc/CT neg/neg H/H: 13.1/38.6 documented as of this encounter (statuses as of 09/27/2023) Immunizations Name Administration Dates Next Due Seasonal Influenza, PF, 6 M & above, IM , (FluLaval or Fluzone) 11/24/2021,10/29/2020 TDAP (age 10 and older)(Boostrix) 02/11/2022, documented as of this encounter Social History [...] money to get more. Never true 07/02/2023 [place] Depression Scale Answer Date Recorded [place] Depression Scale Total 3 07/02/2023 The thought [...] No 07/02/2023 Does the household have a [facility] source of income? (Household - for ages [...] Sign Reading Time Taken Comments Blood Pressure 100/58 09/27/2023 11:24 AM EDT Pulse - - Temperature - - Respiratory Rate - - Oxygen Saturation - - Inhaled Oxygen Concentration - - Weight 65.5 kg (144 lb 6.4 oz) 09/27/2023 11:24 AM EDT Height - - Body Mass Index 25.58 08/27/2023 11:46 AM EDT documented in this encounter Progress Notes * Melba Holliday PA-C - 09/27/2023 11:31 AM EDT 20w3d Anatomy today, final report pending. Having baby GIRL! No concerns. Denies LOF, VB. Placenta posterior per patient, + quickening. RTC in 4 weeks Melba Holliday PA-C * Ailyn Sims MED ASSIST - 09/27/2023 11:26 AM EDT 20w3d Anatomy scan today, everything good! No new concerns documented in this encounter Nursing Notes * Jadyn Naidu RN - 09/27/2023 11:41 AM EDT Patient seen by [facility]. Attempted to enroll patient in HB program, patient declines HB program at this time. Patient reports that she will let us know if she would like toenroll. Jadyn Naidu RN documented in this encounter Plan of Treatment Upcoming Encounters Date Type Department Care Team (Late st Contact Info) Description 10/25/2023 8:45 AM EDT [facility] [address] [facility] [place] [address] Evelio Jacobo MD [address] [facility] [place] [address] Health Maintenance Due Date Last Done Comments HPV (Gardasil) Vaccine (1 - 3-dose series) 2012 Hepatitis B Vaccine (1 of 3 - 19+ 3-dose series) 2016 Depression Screening 11/09/2019 11/08/2018 COVID-19 Vaccine (1 - 2022-2 4 season) 2022 Influenza Vaccine (FLU shot) (#1) 2023 11/24/2021, 10/29/2020 Pap Smear 09/29/2024 09/29/2021, 11/08/2018 DTaP,Tdap,and Td Vaccines (3 - Td or Tdap) 02/12/2032 02/11/2022, 09/03/2020 Gonorrhea / Chlamydia Screen Discontinued , 09/29/2021, 07/14/2017 MENINGOCOCCAL (MENACTRA/MENVEO) Aged Out No longer eligible [...] of other normal , unspecified trimester- Primary documented in this encounter Care Teams Manager Client Support Relationship Specialty Start Date End Date Kyler Venegas DO [address] [place] [address] PCP - General Family Medicine 06/17/21 documented as of this encounter
--- OUTSIDE RECORDS SUMMARY | 2024-02-13 16:21 | External Medical Summary ---
Author Name Unknown Address Unknown Organization [id number]:[facility] - [address] [place] [address] Laboratory Report Ordering Provider Test Date Status MUNIRA WEBB 11/23/2023 09:27:12 Final Observation Date Value Abnormality Reference (Units ) Status WBC, Total 11/23/2023 09:27:12 8.66 4.00-10.8 0 (K/uL) Final RBC 11/23/2023 09:27:12 4.18 3.85-5.15 (M/uL) Final Hemoglobin 11/23/2023 09:27:12 11.2 Below low normal 12 .0-15.3 (g/dL) Final Anemia reflex testing trigge rs on a HGB < 12.0 for Females and HGB < 13.0 for Males in accordance with the WHO Anemia Guidelines
Anemia reflex testing triggers on a HGB < 12.0 for Females and HGB < 13.0 for Males in accordance with the WHO Anemia Guidelines HCT 11/23/2023 09:27:12 36.2 36.0-45.2 (%) Final MCV 11/23/2023 09:27:12 86.6 81.5-97.5 (fL) Final MCH 11/23/2023 09:27:12 26.8 27.0-34.0 (pg) Final MCHC 11/23/2023 09:27:12 30.9 32.0-36.0 (g/dL) Final RDW 11/23/2023 09:27:12 13.7 11.5-15.5 (%) Final Platelets 11/23/2023 09:27:12 196 140-400 (K /uL) Final MPV 11/23/2023 09:27:12 11.9 6.6-11.1 ( fL) Final Nucleated erythrocytes/100 leukocytes [Ratio] in Blood by Automated count 11/23/2023 09:27:12 0 <=0 (/100 WBCs) Critical access hospital Performing Location [facility] - [address] [facility] [address]
--- OUTSIDE RECORDS SUMMARY | 2024-02-13 16:21 | External Medical Summary ---
Author Name Unknown Address Unknown Organization [id number]:[facility] [place] [address] [place] [address] Laboratory Report Ordering Provider Test Date Status MUNIRA WEBB 11/23/2023 09:27:12 Final Observation Date Value Abnormality Reference (Units ) Status Ferritin 11/23/2023 09:27:12 8 Below low normal 13- 150 (ng/mL) Final Performing Location [facility] [place] [address] [place] [address]
--- OUTSIDE RECORDS SUMMARY | 2024-02-13 16:21 | External Medical Summary | Summary of Care ---
Author Name Unknown Organization [facility] Address [address] [facility] [place] [address] Phone [phone] Care Team Providers Care Fuel Agent Name Role Phone Kyler Venegas DO Primary Care Provider Reason for Visit * Reason Onset Date Comments Return Visit Medication Administration 11/23/2023 Flu an d/or Pneumo Inj Encounter Details Date Type Department Care Team (Late st Contact Info) Description 11/23/2023 8:30 AM EDT Office Visit Gynecology/Obstetric s [facility] [address] [facility] [place] [address] BackTeresa ron CRNP [address] [facility] [address] Encounter for supervision of other normal , unspecified trimester*; Need for prophylactic vaccination and inoculation against influenza; Need for prophylactic vaccination with tetanus-diphtheria (Td) Allergies No known active allergiesdocumented as of this encounter (statuses as of 11/23/2023) Medications Medication Sig Dispensed Refills Start Date End Date Status 19 29-1 MG Oral Tablet Chewable Take by mouth. Active Iron 325 (65 Fe) MG Oral Tablet Take by mouth. Active Cetirizine HCl 10 MG Oral Tablet (ZyrTEC Allergy) Take 1 Tablet by mouth in the morning. Active documented as of this encounter (statuses as of 11/23/2023) Active Problems Problem Noted Date Diagnosed Date Encounter for supervision of other normal , unspecified trimester 10/27/2021 Estimated Date of Delivery Comme nts Yes 02/11/2024 Based on last me nstrual period of 05/07/2023 (Exact Date) documented as of this encounter (statuses as of 11/23/2023) Resolved Problems Problem Noted Date Diagnosed Date Resolved Date Antepartum anemia complicating 03/13/2022 07/30/2023 Short interval between pregn ancies complicating , antepartum 10/27/202107/29 Overview: G1 born 11/2018 Supervision of normal first , antepartum 06/10/2020 06/10/2021 Overview: NOB labs at [facility]: rubella immune, Hep B neg, RPR neg, HIV neg, Gc/Ct neg, A+ Encounter for supervision of normal first in second trimester 05/13/2020 06/10/2020 Overview: Transfer from [facility] 04/15/20 A+ ABS Neg RPR: NR HIV neg Hep B neg Rubella immune Urine cx: >100K lactobacillus Gc/CT neg/neg H/H: 13.1/38.6 documented as of this encounter (statuses as of 11/23/2023) Immunizations Name Administration Dates Next Due Seasonal [...] money to get more. Never true 07/02/2023 [place] Depression Scale Answer Date Recorded [place] Depression Scale Total 3 07/02/2023 The thought [...] No 07/02/2023 Does the household have a [facility] source of income? (Household - for ages [...] Sign Reading Time Taken Comments Blood Pressure 110/58 11/23/2023 8:30 AM EDT Pulse - - Temperature - - Respiratory Rate - - Oxygen Saturation - - Inhaled Oxygen Concentration - - Weight 71.7 kg (158 lb) 11/23/2023 8:30 AM EDT Height - - Body Mass Index 27.99 10/25/2023 8:36 AM EDT documented in this encounter Progress Notes * Teresa Burton CRNP - 11/23/2023 8:33 AM EDT 28w4d Doing well w/o concerns. Baby moving well. No cramping/bleeding. Discussed FK and when to call. Flu and Tdap vaccines today, completing labs. Return in 2 weeks. CHAVO Mejia * Tessa Rod LPN - 11/23/2023 8:30 AM EDT 28w4d Denies vaginal bleeding/rom + movement Gtt today Tdap and flu today documented in this encounter Nursing Notes * Tessa Rod LPN - 11/23/2023 8:47 AM EDT Patient here for flu&tdap injection. Patient doing well no complaints. Injection given IM as ordered. Patient tolerated well. Patient to follow up as directed. Patient instructed to call if any complications. Patient verbalized understanding of instructions given. Injection site: Left Deltoid- tdap Right Deltoid-flu Medication Source: Dispensed stock medication documented in this encounter Plan of Treatment Upcoming Encounters Date Type Department Care Team (Late st Contact Info) Description 12/07/2023 8:45 AM EDT Office Visit Gyne[facility]st[facility]s [facility] [place] [address] Teresa Burton CRNP [address] [place] [address] Health Maintenance Due Date Last Done Comments [...] of other normal , unspecified trimester- Primary Need for prophylactic vaccination and inoculation against influenza Need for prophylactic vaccination with tetanus-diphtheria (Td) documented in this encounter Care Teams Fuel Agent Relationship Specialty Start Date End Date Kyler Venegas DO [address] [place] [address] PCP - General Family Medicine 06/17/21 documented as of this encounter
--- OUTSIDE RECORDS SUMMARY | 2024-02-13 16:21 | External Medical Summary ---
Author Name Unknown Address Unknown Organization [id number]:[facility]ATORY [facility] - [address] [place] [address] Laboratory Report Ordering Provider Test Date Status MUNIRA WEBB 11/23/2023 09:27:12 Final Observation Date Value Abnormality Reference (Units ) Status SYNC LEUKOCYTES IN BLOOD BY AUTOMATED COUNT 11/23/2023 09:27:12 8.66 4.00-10.80 (K/uL) Final Segs 11/23/2023 09:27:12 71.4 40.0-75.0 (%) Final Lymphs % 11/23/2023 09:27:12 19.3 18.0-42.0 (%) Final Monos 11/23/2023 09:27:12 4.4 1.0-11.0 (%) Final Eosinophils 11/23/2023 09:27:12 3.8 0.0-6.0 (%) Final Basos 11/23/2023 09:27:12 0.5 0.0-2.0 (%) Final Immature Granulocyte, Percent 11/23/2023 09:27:12 0.6 0.0-2.0 (%) Final Absolute Segs 11/23/2023 09:27:12 6.19 1.80-7.70 (K/uL) Final Lymphs, absolute 11/23/2023 09:27:12 1.67 1.00-4.80 (K/ul) Final Monos, Abs 11/23/2023 09:27:12 0.38 0.00-1.10 (K/uL) Final Eos, Abs 11/23/2023 09:27:12 0.33 0.00-0.70 (K/uL) Final Basos, Abs 11/23/2023 09:27:12 0.04 0.00-0.20 (K/uL) Final Immature Granulocytes, Number 11/23/2023 09:27:12 0.05 0.00-0.20 (K/uL) Final Performing Location [facility] - [address] [facility] [address]
--- OUTSIDE RECORDS SUMMARY | 2024-02-13 16:21 | External Medical Summary ---
Author Name Unknown Address Unknown Organization [id number][facility] [address] [place] [address] Laboratory Report Ordering Provider Test Date Status FREYA WEBBU 11/23/2023 09:27:12 Final Observation Date Value Abnormality Reference (Units ) Status Glucose [Moles/volume] in Serum or Plasma --1 hour post 50 g glucose PO 11/23/2023 09:27:12 101 70-129 (mg/dL) Final [facility] [address] [place] [address]
--- OUTSIDE RECORDS SUMMARY | 2024-02-13 16:21 | External Medical Summary ---
Author Name Unknown Address Unknown Organization [id number]:LABORATORY [facility] [place] - [address] [place] [address] Laboratory Report Ordering Provider Test Date Status MUNIRA WEBB 11/23/2023 09:27:12 Final Observation Date Value Abnormality Reference (Units ) Status Treponema pallidum Ab [Presence] in Serum by Immunoassay 11/23/2023 09:27:12 Nonreactive Nonreactive Final No serologic evidence of syp hilis. No additional testing clinicially indicated at this time. Consider repeat testing in 2-4 weeks if acute or primary syphilis is suspected. Performing Location LABORATORY [facility] - [address] [place] [address]
--- OUTSIDE RECORDS SUMMARY | 2024-02-13 16:21 | External Medical Summary ---
Author Name Unknown Address Unknown Organization [id number]:[facility] [place] [address] [place] [address] Laboratory Report Ordering Provider Test Date Status MUNIRA WEBB 11/23/2023 09:27:12 Final Observation Date Value Abnormality Reference (Units ) Status Iron 11/23/2023 09:27:12 40 33-151 (ug/dL) Final Iron-binding capacity 11/23/2023 09:27:12 537 Above high normal 250-425 (ug/dL) Final Transferrin Sat % 11/23/2023 09:27:12 7 Below low normal 15-55 (%) Final Performing Location [facility] [place] [address] [place] [address]
--- OUTSIDE RECORDS SUMMARY | 2024-02-13 16:21 | External Medical Summary | Summary of Care ---
Author Name Unknown Organization [facility] Address [address] [place] [address] Phone [phone] Care Team Providers Care Custom Feed Mill Operator Helper Name Role Phone Kyler Venegas DO Primary Care Provider Reason for Visit * Reason Comments Outpatient Testing Encounter Details Date Type Department Care Team (Late st Contact Info) Description 11/23/2023 8:20 AM EDT Laboratory Laboratory, [facility] [address] [place] [address] [facility] [address] [place] [address] Encounter for supervision of other normal , unspecified trimester Allergies No known active allergiesdocumented as of [...] antepartum 06/10/2020 06/10/2021 Overview: NOB labs at [facility]: rubella immune, Hep B neg, RPR neg, HIV neg, Gc/Ct neg, A+ Encounter for supervision of normal first in second trimester 05/13/2020 06/10/2020 Overview: Transfer from [facility] 04/15/20 A+ ABS Neg RPR: NR [...] money to get more. Never true 07/02/2023 [place] Depression Scale Answer Date Recorded [place] Depression Scale Total 3 07/02/2023 The thought [...] No 07/02/2023 Does the household have a [facility] source [facility] income? (Household - for [...] EDT Office Visit Gynecology/Obstetrics [facility] [address] [place] [address] Teresa Burton CRNP [address] [address] Pending Results Name Type Priority Associated Diagnoses Date /Time CBC WITH WBC DIFFERENTIAL AND ANEMIA REFLEX WORKUP Lab Routine Encounter for supervision of other normal , unspecified trimester 11/23/2023 9:27 AM EDT SYPHILIS ANTIBODY SCREEN WITH REFLEX TO RPR Lab Routine Encounter for supervision of other normal , unspecified trimester 11/23/2023 9:27 AM EDT 50-G GESTATIONAL GLUCOSE, 1 HOUR Lab Routine Encounter for supervision of other normal , unspecified trimester 11/23/2023 9:27 AM EDT ANEMIA CBC Lab Routine Encounter for supervision of other normal , unspecified trimester 11/23/2023 9:27 AM EDT DIFFERENTIAL, AUTOMATED Lab Routine Encounter for supervision of other normal , unspecified trimester 11/23/2023 9:27 AM EDT ANEMIA REFLEX CHEMISTRY HOLD Lab Routine Encounter for supervision of other normal , unspecified trimester 11/23/2023 9:27 AM EDT SYPHILIS ANTIBODY SCREEN Lab Routine Encounter for supervision of other normal , unspecified trimester 11/23/2023 9:27 AM EDT Health Maintenance Due Date Last Done Comments [...] supervision of other normal , unspecified trimester documented in this encounter Care Teams Custom Feed Mill Operator Helper Relationship Specialty Start Date End Date Kyler Venegas DO [address] [place] [address] PCP - General Family Medicine 06/17/21 documented as of this encounter
--- OUTSIDE RECORDS SUMMARY | 2024-02-13 16:21 | External Medical Summary ---
Author Name Unknown Address Unknown Organization K01:LABORATORY [facility] [place] - [facility][note 3] [address] [facility] [address] Laboratory Report Ordering Provider Test Date Status MUNIRA WEBB 11/23/2023 09:27:12 Final Observation Date Value Abnormality Reference (Units ) Status Retic, % (auto) 11/23/2023 09:27:12 1.76 0.80-1.90 (%) Final Reticulocytes, Absolute 11/23/2023 09:27:12 71.3 31.3-100.1 (K/uL) Final Reticulocyte fraction, immature 11/23/2023 09:27:12 18.8 2.5-20.6 (%) Final Reticulocyte HGB 11/23/2023 09:27:12 28.4 Below low normal 29.7-37.4 (pg) Final Performing Location LABORATORY [facility] [place] [facility] - [facility][note 3] [place] [address]
--- OUTSIDE RECORDS SUMMARY | 2024-02-13 16:21 | External Medical Summary | Summary of Care ---
Author Name Unknown Organization [facility] Address [address] [facility] [address] Phone [phone] Care Team Providers Care Director Of In Service Education Name Role Phone Kyler Venegas DO Primary Care Provider Reason for Visit * Reason Comments Return Visit Encounter Details Date Type Department Care Team (Late st Contact Info) Description 08/27/2023 11:45 AM EDT Office Visit Gynecology/Obstetric s [facility] [address] [place] [address] Melba Holliday PA-C [address] [place] [address] Encounter for supervision of other normal , unspecified trimester* Allergies No known active allergiesdocumented as of this encounter (statuses as of 08/27/2023) Medications Medication Sig Dispensed Refills Start Date End Date Status 19 29-1 MG Oral Tablet Chewable Take by mouth. Activ e documented as of this encounter (statuses as of 08/27/2023) Active Problems Problem Noted Date Diagnosed Date Encounter for supervision of other normal , unspecified trimester 10/27/2021 Estimated Date of Delivery Comme nts Yes 02/11/2024 Based on last me nstrual period of 05/07/2023 (Exact Date) documented as of this encounter (statuses as of 08/27/2023) Resolved Problems Problem Noted Date Diagnosed Date Resolved Date Antepartum anemia complicating 03/13/2022 07/30/2023 Short interval between pregn ancies complicating , antepartum 10/27/202107/29 Overview: G1 born 11/2018 Supervision of normal first , antepartum 06/10/2020 06/10/2021 Overview: NOB labs at [facility]: rubella immune, Hep B neg, RPR neg, HIV neg, Gc/Ct neg, A+ Encounter for supervision of normal first in second trimester 05/13/2020 06/10/2020 Overview: Transfer from [facility] [employer] [facility] 04/15/20 A+ ABS Neg RPR: NR HIV neg Hep B neg Rubella immune Urine cx: >100K lactobacillus Gc/CT neg/neg H/H: 13.1/38.6 documented as of this encounter (statuses as of 08/27/2023) Immunizations Name Administration Dates Next Due Seasonal [...] money to get more. Never true 07/02/2023 [place] Depression Scale Answer Date Recorded [place] Depression Scale Total 3 07/02/2023 The thought [...] No 07/02/2023 Does the household have a [facility] source [facility] income? (Household - for ages [...] Sign Reading Time Taken Comments Blood Pressure 110/64 08/27/2023 11:46 AM EDT Pulse - - Temperature - - Respiratory Rate - - Oxygen Saturation - - Inhaled Oxygen Concentration - - Weight 61.8 kg (136 lb 3.2 oz) 08/27/2023 11:46 AM EDT Height 160 cm (5' 3") 08/27/2023 11:46 AM EDT Body Mass Index 24.13 08/27/2023 11:46 AM EDT documented in this encounter Progress Notes * Melba Holliday PA-C - 08/27/2023 11:56 AM EDT 16w0d First time seeing patient. Denies VB, LOF. Doing well. Declines genetic testing. Anatomy with next visit RTC in 4 weeks Melba Holliday PA-C documented in this encounter Nursing Notes * Jadyn Naidu RN - 08/27/2023 11:47 AM EDT Patient here for JODEE 16w0d Anatomy US pended for next visit No concerns Jadyn Naidu RN documented in this encounter Plan of Treatment Upcoming Encounters Date Type Department Care Team (Late st Contact Info) Description 09/27/2023 9:45 AM EDT Imaging Radiology [facility] 2nd Floor, [place] [address] [place] [address] 09/27/2023 11:45 AM EDT Office Visit Gynecology/Obstetrics [facility] [address] [place] [address] Melba Holliday PA-C [address] [place] [address] Scheduled Orders Name Type Priority Associated Diagnoses Orde r Schedule US PREG SINGLE/1ST GEST, 14 WEEKS OR LATER Medical Imaging Routine Encounter for supervision of other normal , unspecified trimester Expected: 09/27/2023, Expires: 09/26/2024 Health Maintenance Due Date Last Done Comments [...] Primary documented in this encounter Care Teams Director Of In Service Education Relationship Specialty Start Date End Date Kyler Venegas DO [address] [place] [address] PCP - General Family Medicine 06/17/21 documented as of this encounter
--- OUTSIDE RECORDS SUMMARY | 2024-02-13 16:21 | External Medical Summary | Summary of Care ---
Author Name Unknown Organization [facility] Address [address] [facility] [place] [address] Phone [phone] Care Team Providers Care Wafer Polishing Lead Worker Name Role Phone Kyler Venegas DO Primary Care Provider Reason for Visit * Reason Comments Return Visit Encounter Details Date Type Department Care Team (Late st Contact Info) Description 10/25/2023 8:45 AM EDT Office Visit Gynecology/Obstetric s [facility] [address] [place] [address] Evelio Jacobo MD [address] [place] [address] Encounter for supervision of other normal , unspecified trimester* Allergies No known active allergiesdocumented as of this encounter (statuses as of 10/25/2023) Medications Medication Sig Dispensed Refills Start Date End Date Status 19 29-1 MG Oral Tablet Chewable Take by mouth. Activ e documented as of this encounter (statuses as of 10/25/2023) Active Problems Problem Noted Date Diagnosed Date Encounter for supervision of other normal , unspecified trimester 10/27/2021 Estimated Date of Delivery Comme nts Yes 02/11/2024 Based on last me nstrual period of 05/07/2023 (Exact Date) documented as of this encounter (statuses as of 10/25/2023) Resolved Problems Problem Noted Date Diagnosed Date Resolved Date Antepartum anemia complicating 03/13/2022 07/30/2023 Short interval between pregn ancies complicating , antepartum 10/27/202107/29 Overview: G1 born 11/2018 Supervision of normal first , antepartum 06/10/2020 06/10/2021 Overview: NOB labs at [facility]: rubella immune, Hep B neg, RPR neg, HIV neg, Gc/Ct neg, A+ Encounter for supervision of normal first in second trimester 05/13/2020 06/10/2020 Overview: Transfer from [facility] [employer] [facility] 04/15/20 A+ ABS Neg RPR: NR HIV neg Hep B neg Rubella immune Urine cx: >100K lactobacillus Gc/CT neg/neg H/H: 13.1/38.6 documented as of this encounter (statuses as of 10/25/2023) Immunizations Name Administration Dates Next Due Seasonal [...] money to get more. Never true 07/02/2023 [place] Depression Scale Answer Date Recorded [place] Depression Scale Total 3 07/02/2023 The thought [...] No 07/02/2023 Does the household have a [facility] source [facility] income? (Household - for [...] Sign Reading Time Taken Comments Blood Pressure 114/56 10/25/2023 8:36 AM EDT Pulse - - Temperature - - Respiratory Rate - - Oxygen Saturation - - Inhaled Oxygen Concentration - - Weight 69.9 kg (154 lb) 10/25/2023 8:36 AM EDT Height 160 cm (5' 3") 10/25/2023 8:36 AM EDT Body Mass Index 27.28 10/25/2023 8:36 AM EDT documented in this encounter Progress Notes * Evelio Jacobo MD - 10/25/2023 4:15 PM EDT Pt doing well No complaints Denisse for anatomy scan at 28 weeks with labs documented in this encounter Nursing Notes * Radha Weiss LPN - 10/25/2023 8:47 AM EDT 24w3d Denies concerns documented in this encounter Plan of Treatment Upcoming Encounters Date Type Department Care Team (Late st Contact Info) Description 11/23/2023 8:20 AM EDT Laboratory Laboratory, [facility] [address] [place] [phone] [facility] [address] [place] [address] 11/23/2023 8:30 AM EDT Office Visit Gynecology/Obstetrics [facility] [address] [place] [address] Teresa Burton CRNP [address] [place] [address] Scheduled Orders Name Type Priority Associated Diagnoses Orde r Schedule CBC WITH WBC DIFFERENTIAL AND ANEMIA REFLEX WORKUP Lab Routine Encounter for supervision of other normal , unspecified trimester Expected: 11/24/2023 (Approximate), Expires: 10/24/2024 SYPHILIS ANTIBODY SCREEN WITH REFLEX TO RPR Lab Routine Encounter for supervision of other normal , unspecified trimester Expected: 11/24/2023 (Approximate), Expires: 10/24/2024 50-G GESTATIONAL GLUCOSE, 1 HOUR Lab Routine Encounter for supervision of other normal , unspecified trimester Expected: 11/24/2023 (Approximate), Expires: 10/24/2024 Health Maintenance Due Date Last Done Comments HPV (Gardasil) Vaccine (1 - 3-dose series) 2012 Hepatitis B Vaccine (1 of 3 - 19+ 3-dose series) 2016 Depression Screening 11/09/2019 11/08/2018 COVID-19 Vaccine (1 - 3-2 4 season) 2023 Influenza Vaccine (FLU shot) (#1) 2023 11/24/2021, 10/29/2020 Pap Smear 09/29/2024 09/29/2021, 11/08/2018 DTap/Tdap Vaccines (3 - Td o r Tdap) 02/12/2032 02/11/2022, 09/03/2020 Gonorrhea / Chlamydia [...] Primary documented in this encounter Care Teams Wafer Polishing Lead Worker Relationship Specialty Start Date End Date Kyler Venegas DO [address] [place] [address] PCP - General Family Medicine 06/17/21 documented as of this encounter
[2024-02-13] MEDS ORDERED: ACETAMINOPHEN 325 MG TAB PO PRN (16:55)
[2024-02-13] MEDS ORDERED: CALCIUM CARBONATE 500 MG CHEWABLE TAB PO PRN (16:55)
[2024-02-13 17:33] LABS: Hematocrit (blood only) 36.6 % (37.0-47.0); Hemoglobin 12.1 g/dl (12.0-16.0); Mean Corpuscular Hemoglobin 25.4 pg (25.0-34.0); Mean Corpuscular Hgb Conc 33.1 g/dL (32.0-36.0); Mean Corpuscular Volume 76.9 fL (80.0-100.0); Mean Platelet Volume 11.8 fL (9.4-12.4); Platelet Count 175 K/uL (130-400); RDW Coefficient of Variation 14.8 % (11.5-14.5); RDW Standard Deviation 40.7 fL (36.4-46.3); Red Blood Count 4.76 M/uL (4.20-5.40); White Blood Count 9.74 K/ul (4.8-10.8)
[2024-02-13] MEDS: OXYTOCIN 30 UNITS/NSS 30 UNITS/500 ML BAG IV PRN (23:46)
[2024-02-13] MEDS: LIDOCAINE 1% LOCAL 20 ML VIAL INFIL PRN (23:56)
[2024-02-14] MEDS: METHYLERGONOVINE MALEATE 0.2 MG/ML AMP IM ONE (00:05)
[2024-02-14] MEDS ORDERED: OXYTOCIN 30 UNITS/NSS 30 UNITS/500 ML BAG IV PRN (00:08)
[2024-02-14] MEDS ORDERED: oxyCODONE/ACETAMINOPHEN 5mg/325mg TAB PO PRN (00:08)
[2024-02-14] MEDS ORDERED: HYDROCORTISONE ACETATE 25 MG SUPP PR PRN (00:08)
[2024-02-14] MEDS ORDERED: ACETAMINOPHEN W/CODEINE #3 1 TAB PO PRN (00:08)
--- NOTE | 2024-02-14 00:13 | Delivery Summary ---
Vaginal Delivery Summary Date of Service February 14, 2024 Vaginal Delivery Summary Patient was followed in the office for care and delivery. has been well dated with a first trimester ultrasound. Patient called having contractions most of the night prior to coming in. He was 40 weeks and 3 days gestation. On admission to the hospital she was 4 to 5 cm dilated vertex presentation. Anterior 90% effaced. She was having good irregular but strong contractions. She labored for several hours. Membranes were ruptured at about 6 cm. She continued with an unstimulated labor went to full dilatation. With about 7 pushes pushed out a live female infant via direct occiput anterior position over an intact perineum. Infant was suctioned through the mouth and the nose. Shoulders were delivered without difficulty. Cord was allowed to pulse for 1 minute. Cord was then clamped cut by the father. Perineum was repaired. The placenta was removed intact with IV Pitocin running. Uterus contracted nicely. First-degree laceration was noted of the perineum. This was repaired anatomically under local. The vaginal mucosa was approximated out and to beyond the hymenal ring with a running Vicryl suture. A deep suture of Vicryl was used to approximate the bulbocavernosus muscle. The perineal body was repaired with 2 deep sutures of interrupted Vicryl. A running subcuticular suture of Vicryl was used approximate the perineal skin edges. Quantitative blood loss 126 mL.
[2024-02-14] MEDS: DIPHTHER/TETAN/PERTUS Vaccine (Tdap, Adol/Adult) 0.5mL IM ONE (00:33)
[2024-02-14] MEDS: ACETAMINOPHEN 325 MG TAB PO PRN (02:26)
[2024-02-14] MEDS: BENZOCAINE 20% SPRY 85 APPLN/85 GM CAN EXT PRN (02:26)
[2024-02-14] MEDS: IBUPROFEN 600 MG TAB PO PRN (05:47)
[2024-02-14] MEDS: PRENATAL VITAMIN 1 TAB PO SCH (08:13)
[2024-02-14] MEDS: DOCUSATE SODIUM 100 MG CAP PO SCH (08:13)
--- NOTE | 2024-02-14 12:24 | Obstetrical Progress Note ---
Date of Service February 14, 2024 Subjective Ambulation: ambulating normally Voiding: no voiding problems Passing Gas:: Yes Diet Tolerance:: regular diet Lochia:: Small Feeding Type:: breast feeding Current Pain Level(1-10): 0 Physical Exam Constitutional WD/WN, vitals as above Gastrointestinal (Abdomen) Inspection/Auscultation: abdomen normal to inspection Musculoskeletal Extremities: extremities normal to inspection Skin no rashes, warm and dry Neurologic patellar DTR's 2+ bilat, sensation intact Psychiatric A+Ox3, euthymic affect Results & Data Vital Signs (Past 12 Hours) Vital Signs Temp Pulse Pulse Resp BP BP Pulse Ox 02/14/24 08:15 36.5 C 83 18 102/66 96 02/14/24 02:10 37.0 C 89 18 113/66 97 02/14/24 02:10 37.0 C 02/14/24 02:08 89 113/66 02/14/24 00:55 16 02/14/24 00:55 37.0 C 16 O2 Del Method 02/14/24 08:15 Room Air 02/14/24 02:10 Room Air 02/14/24 02:10 02/14/24 02:08 02/14/24 00:55 02/14/24 00:55 Laboratory Results Laboratory Results - last 48 hr 02/13/24 17:07 WBC 9.74 RBC 4.76 Hgb 12.1 Hct 36.6 L MCV 76.9 L MCH 25.4 MCHC 33.1 RDW Std Deviation 40.7 RDW Coeff of Harish 14.8 H Plt Count 175 MPV 11.8 Treponema pallidum Ab Negative
[2024-02-15 06:17] LABS: Hematocrit (blood only) 32.1 % (37.0-47.0); Hemoglobin 10.3 g/dl (12.0-16.0); Mean Corpuscular Hemoglobin 25.3 pg (25.0-34.0); Mean Corpuscular Hgb Conc 32.1 g/dL (32.0-36.0); Mean Corpuscular Volume 78.9 fL (80.0-100.0); Mean Platelet Volume 12.1 fL (9.4-12.4); Platelet Count 184 K/uL (130-400); RDW Coefficient of Variation 14.9 % (11.5-14.5); RDW Standard Deviation 42.1 fL (36.4-46.3); Red Blood Count 4.07 M/uL (4.20-5.40); White Blood Count 11.95 K/ul (4.8-10.8)
[2024-02-15 09:09] VITALS: BP 107/68; PULSE 82; RESP 16; TEMP 97.7; O2SAT 97
--- NOTE | 2024-02-15 10:33 | Obstetrical Progress Note ---
Date of Service February 15, 2024 Assessment & Plan (1) Normal course: Pt doing well No complaints d/c home with instructions Subjective Ambulation: ambulating normally Voiding: no voiding problems Passing Gas:: Yes Diet Tolerance:: regular diet Lochia:: Small Feeding Type:: breast feeding Review of Systems All systems reviewed & are unremarkable except as noted in HPI & below Physical Exam Constitutional WD/WN, vitals as above well developed and well nourished Eyes PERRL, conjunctivae normal, anicteric sclerae Neck trachea midline, no thyromegaly Respiratory normal respiratory effort, lungs clear to auscultation Auscultation: no crackles, no rales and no wheezes Cardiovascular RRR, no murmur, no edema Gastrointestinal (Abdomen) normal bowel sounds, soft, nontender, no hepatosplenomegaly Uterus is below umbilicus Musculoskeletal no cyanosis or clubbing, extremities motor strength 5/5 Skin no rashes, warm and dry Neurologic patellar DTR's 2+ bilat, sensation intact Psychiatric A+Ox3, euthymic affect Genitourinary normal external appearance Results & Data Vital Signs (Past 12 Hours) Vital Signs Temp Pulse Resp BP Pulse Ox O2 Del Method 02/15/24 07:30 36.5 C 82 16 107/68 97 Room Air 02/15/24 00:01 36.4 C L 89 18 111/65 98 Room Air
[2024-02-15] MEDS ORDERED: bisacodyL 5 MG TABEC PO SCH (20:00)
[2024-02-16] MEDS ORDERED: bisacodyL 10 MG SUPP PR PRN
== END 2024-02-15 12:01 | disposition home health service (06) | DRG 807 ==
LOC: OPB 16:14 → 4S1 16:15 → 4E2 02-14 02:26